=== PATIENT | male | born 1980 | race Caucasian/White ===

== ENCOUNTER 2017-04-19 14:36 | Day surgery (SDC) | payer OTHER ==
[~2017-04-19] VITALS: Ht 180.3 cm; Wt 90.9 kg
[~2017-04-19 14:36] MED LIST: TEST200V10 IM
[2017-04-19 15:03] VITALS: BP 127/76
[2017-04-19] MEDS ORDERED: MIDAZolam 1mg/ml 10ml vial ONE ×2 (15:36→16:43)
[2017-04-19] MEDS ORDERED: fentaNYL/PF 50MCG/1 ML 2ML syringe ONE ×3 (15:36→16:43)
[2017-04-19 16:00] VITALS: BP 120/61
[2017-04-19 16:10] VITALS: BP 113/66
[2017-04-19 16:20] VITALS: BP 123/67
== END 2017-04-19 16:40 | disposition home or self-care (01) ==
LOC: GI LAB 14:36
PROVIDERS: ATTEND Internal Medicine Gastroenterology
DX: K64.8 Other hemorrhoids (principal)
CPT/HCPCS: 45350; 99152; J2250; J3010; J7030; A4620; G0500